=== PATIENT | female | born 1955 | race American Indian/Alaskan Native ===

== ENCOUNTER 2018-08-27 12:19 | Emergency (ER) | payer OTHER ==
[2018-08-27] MEDS ORDERED: KEPPRA 1,000 MG/NS 0.75% 100ML 1,000 MG/100 ML BAG IV ONE (12:39)
[2018-08-27 13:31] LABS: Basophils # (Auto) 0.1 K/mm3 (0.0-0.1); Basophils % (Auto) 0.6 % (0.0-1.8); Eosinophils # (Auto) 0.1 K/mm3 (0.0-0.4); Eosinophils % (Auto) 0.7 % (0.0-4.3); Hematocrit 35.9 % (30.3-42.9); Hemoglobin 11.9 gm/dl (10.1-14.3); Lymphocytes # (Auto) 0.8 K/mm3 (1.2-5.4); Mean Corpuscular HGB Conc 33 % (30-34); Mean Corpuscular Volume 89 fl (79-97); Monocytes # (Auto) 0.3 K/mm3 (0.0-0.8); Monocytes % (Auto) 3.9 % (0.0-7.3); Platelet Count 288 K/mm3 (140-440); Red Blood Count 4.03 M/mm3 (3.65-5.03); Red Cell Distribution Width 12.9 % (13.2-15.2)
--- NOTE | 2018-08-27 14:13 | Cat Scan Report ---
CT CHEST WITHOUT CONTRAST: HISTORY: Chest wall pain after trauma. COMPARISON: none. TECHNIQUE: Helical CT in 1.25mm intervals without IV contrast. Sagittal and coronal reformatted images. FINDINGS: Thyroid gland: Normal. Tracheobronchial tree: Normal. Esophagus: Normal. Heart: Normal. Pericardium: Normal. Mediastinum: Normal. Lung Calix: Normal. Pleural Spaces: Normal. Musculoskeletal: Normal. IMPRESSION: Unremarkable CT chest without contrast.
[2018-08-27] MEDS ORDERED: ZOFRAN ONE (14:20)
[2018-08-27] MEDS ORDERED: MORPHINE ONE (14:21)
[2018-08-27] MEDS ORDERED: MORPHINE IV ONE (14:32)
[2018-08-27] MEDS ORDERED: ZOFRAN IV ONE (14:32)
[2018-08-27 14:56] LABS: BUN/Creatinine Ratio 23; Blood Urea Nitrogen 16 mg/dL (7-17); Calcium 9.3 mg/dL (8.4-10.2); Hemolysis Index 2
[2018-08-27] MEDS ORDERED: ATIVAN IV PRN ×3 (15:33)
--- NOTE | 2018-08-27 16:09 | Cat Scan Report ---
PROCEDURE: CT HEAD/BRAIN WO CON TECHNIQUE: Computerized tomography of the head was performed without contrast material. Coronal and s agittal reformatted images were provided. CT DOSE LENGTH PRODUCT: 1841 mGy-cm. HISTORY: closed head injury after SZ COMPARISONS: None currently available. FINDINGS: There is no evidence for acute ischemia. There is no hemorrhage. There is no midline shift. There is no hydrocephalus. There is no mass. Age appropriate burger-white matter attenuation is noted. There is no calvarial fracture. Right posterior scalp contusion and laceration. Subcutaneous gas note d. There may be a small subcutaneous hematoma measuring 3.5 x 0.8 cm. Punctate densities within the anterior scalp skin may represent foreign bodies or dystrophic calcific ations. The temporal bones demonstrate aerated mastoid air cells. The middle ears appear unremarkable. Paranasal sinuses are unremarkable. Globes are intact. IMPRESSION: * No acute intracranial findings. This document is electronically signed by Vladimir Carney MD., August 27 2018 04:06:57 PM ET
--- NOTE | 2018-08-27 16:27 | Emergency Department Report ---
ED Seizure HPI - General Chief Complaint: Seizure Stated Complaint: SEIZURE Time Seen by Provider: 08/27/18 12:35 Source: patient, EMS Mode of arrival: Stretcher Limitations: No Limitations - History of Present Illness Initial Comments: Patient is a 63-year-old female who had a seizure while at work today. Patient states she did fall she believes she may have hit her hand secondary to having some pain and swelling to the posterior scalp. Patient also complains some left chest pain with palpation and movement. Patient states she takes Keppra for seizures and is not ran out of any of her medications. Patient also has a past history of hypertension and diabetes asthma. Paramedics state that the patient was postictal on their arrival however she is much more awake and alert upon their arrival to the emergency department. - Related Data Previous Rx's Medication Instructions Recorded Last Taken Type HYDROcodone/ACETAMINOPHEN 1 each PO Q6HR PRN #12 tablet 08/27/18 Unknown Rx [Hydrocodone-Acetamin 5-325 mg] Ibuprofen [Ibu] 600 mg PO Q6HR PRN #20 tablet 08/27/18 Unknown Rx Allergies Allergy/AdvReac Type Severity Reaction Status Date / Time latex Allergy Hives Verified 08/27/18 13:11 ED Review of Systems ROS: Stated complaint: SEIZURE Other details as noted in HPI Comment: All other systems reviewed and negative ED Past Medical Hx - Past Medical History Previous Medical History?: Yes Hx Hypertension: Yes Hx Diabetes: Yes (type 2) Hx GERD: Yes Hx Seizures: Yes Hx Asthma: Yes - Surgical History Past Surgical History?: Yes Hx Cholecystectomy: Yes Additional Surgical History: right pinky tendon, partial hysterectomy, B/L knee replacement, tubal ligation - Social History Smoking Status: Former Smoker Substance Use Type: None - Medications Home Medications: Home Medications Medication Instructions Recorded Confirmed Last Taken Type HYDROcodone/ACETAMINOPHEN 1 each PO Q6HR PRN #12 tablet 08/27/18 Unknown Rx [Hydrocodone-Acetamin 5-325 mg] Ibuprofen [Ibu] 600 mg PO Q6HR PRN #20 tablet 08/27/18 Unknown Rx ED Physical Exam - General Limitations: No Limitations General appearance: alert, in no apparent distress - Head Head exam: Present: normocephalic. Absent: atraumatic (patient with swelling to posterior scalp without laceration) - Eye Eye exam: Present: normal appearance - ENT ENT exam: Present: mucous membranes moist - Neck Neck exam: Present: normal inspection - Respiratory Respiratory exam: Present: normal lung sounds bilaterally, chest wall tenderness (left chest point tenderness just left of the sternum). Absent: respiratory distress, wheezes, rales, rhonchi - Cardiovascular Cardiovascular Exam: Present: regular rate, normal rhythm. Absent: systolic murmur, diastolic murmur, rubs, gallop - GI/Abdominal GI/Abdominal exam: Present: soft, normal bowel sounds. Absent: distended, tenderness, guarding, rebound, rigid - Extremities Exam Extremities exam: Present: normal inspection - Back Exam Back exam: Present: normal inspection - Neurological Exam Neurological exam: Present: alert, oriented X3 - Psychiatric Psychiatric exam: Present: normal affect, normal mood - Skin Skin exam: Present: warm, dry, intact, normal color. Absent: rash ED Course Vital Signs 08/27/18 08/27/18 08/27/18 12:46 12:54 15:38 Temperature 98.3 F Pulse Rate 97 H 92 H Respiratory 13 13 15 Rate Blood Pressure 159/85 Blood Pressure 159/85 152/78 [Left] O2 Sat by Pulse 100 100 97 Oximetry ED Medical Decision Making - Lab Data Result diagrams: 08/27/18 13:11 08/27/18 14:32 - Radiology Data [facility] [address] [place] [address] Cat Scan Report Signed Patient: GENO BECK MR#: [id number] : 1955 Acct:[id number] Age/Sex: 63 / F ADM Date: 08/27/18 Loc: ED Attending Dr: Ordering Physician: OLI MILLER MD Date of Service: 08/27/18 Procedure(s): CT head/brain wo con Accession Number(s): [id number] cc: OLI MILLER MD PROCEDURE: CT HEAD/BRAIN WO CON TECHNIQUE: Computerized tomography of the head was performed without contrast material. Coronal and sagittal reformatted images were provided. CT DOSE LENGTH PRODUCT: 1841 mGy-cm. HISTORY: closed head injury after SZ COMPARISONS: None currently available. FINDINGS: There is no evidence for acute ischemia. There is no hemorrhage. There is no midline shift. There is no hydrocephalus. There is no mass. Age appropriate burger-white matter attenuation is noted. There is no calvarial fracture. Right posterior scalp contusion and laceration. Subcutaneous gas noted. There may be a small subcutaneous hematoma measuring 3.5 x 0.8 cm. Punctate densities within the anterior scalp skin may represent foreign bodies or dystrophic calcifications. The temporal bones demonstrate aerated mastoid air cells. The middle ears appear unremarkable. Paranasal sinuses are unremarkable. Globes are intact. IMPRESSION: * No acute intracranial findings. This document is electronically signed by Vladimir Velasco MD., August 27 2018 04:06:57 PM ET Transcribed By: TYM Dictated By: VLADIMIR VELASCO MD Electronically Authenticated By: VLADIMIR VELASCO MD Signed Date/Time: 08/27/18 1609 DD/ 46 TD/TT: 08/27/181546 [facility] [address] [id number] Cat Scan Report Signed Patient: GENO BECK MR#: [id number] : 1955 Acct:[id number] Age/Sex: 63 / F ADM Date: 08/27/18 Loc: ED Attending Dr: Ordering Physician: OLI MILLER MD Date of Service: 08/27/18 Procedure(s): CT chest wo con Accession Number(s): [id number] cc: OLI MILLER MD CT CHEST WITHOUT CONTRAST: HISTORY: Chest wall pain after trauma. COMPARISON: none. TECHNIQUE: Helical CT in 1.25mm intervals without IV contrast. Sagittal and coronal reformatted images. FINDINGS: Thyroid gland: Normal. Tracheobronchial tree: Normal. Esophagus: Normal. Heart: Normal. Pericardium: Normal. Mediastinum: Normal. Lung Calix: Normal. Pleural Spaces: Normal. Musculoskeletal: Normal. IMPRESSION: Unremarkable CT chest without contrast. Transcribed By: TTR Dictated By: CARMEN JAQUEZ JR, MD Electronically Authenticated By: CARMEN JAQUEZ JR, MD Signed Date/Time: 08/27/181407 DD/ 07 TD/TT: 08/27/181407 - Medical Decision Making Patient was loaded with 1 g of Keppra here in the emergency department. Patient likely with breakthrough seizure. Patient does have a small hematoma to the posterior scalp however there is no intracranial bleed or injury. Patient's CT chest shows no rib fractures or intrathoracic M O'Efren. Patient be discharged home. Critical care attestation.: If time is entered above; I have spent that time in minutes in the direct care of this critically ill patient, excluding procedure time. ED Disposition Clinical Impression: Breakthrough seizure, Chest wall pain Scalp hematoma Qualifiers: Encounter type: initial encounter Qualified Code(s): S00.03XA - Contusion of scalp, initial encounter Disposition: TO HOME OR SELFCARE Is pt being admited?: No Does the pt Need Aspirin: No Condition: Stable Instructions: Costochondritis (ED), Recurrent Seizures Adult (ED), Contusion in Adults (ED) Referrals: [facility] [Primary Care Provider] - 3-5 Days Time of Disposition: 16:29
[2018-08-27 17:06] VITALS: BP 158/72
== END 2018-08-27 17:07 | disposition home or self-care (01) ==
LOC: ED 12:19
DX: G40.909 Epilepsy, unspecified, not intractable, without status epilepticus (principal); S00.03XA Contusion of scalp, initial encounter; R07.2 Precordial pain; I10 Essential (primary) hypertension; E11.9 Type 2 diabetes mellitus without complications; K21.9 Gastro-esophageal reflux disease without esophagitis; J45.909 Unspecified asthma, uncomplicated; Z91.040 Latex allergy status; Z90.49 Acquired absence of other specified parts of digestive tract; Z90.711 Acquired absence of uterus with remaining cervical stump; Z96.653 Presence of artificial knee joint, bilateral; Z98.51 Tubal ligation status; Z87.891 Personal history of nicotine dependence; W01.198A Fall on same level from slipping, tripping and stumbling with subsequent striking against other object, initial encounter; Y93.89 Activity, other specified; Y92.69 Other specified industrial and construction area as the place of occurrence of the external cause; Y99.8 Other external cause status
CPT/HCPCS: 36415; 70450; 71250; 80048; 85025; 96365; 96375; 99285; J1953; J2270; J2405